=== PATIENT | male | born 1985 | race Caucasian/White ===

== ENCOUNTER 2021-02-18 14:57 | Emergency (ER) | payer MEDICAID ==
[~2021-02-18] VITALS: Ht 177.8 cm; Wt 97.5 kg
--- NOTE | 2021-02-18 15:05 | NUR ---
Dr Baldwin at bedside for MSE in Room 5.
[2021-02-18] MEDS ORDERED: LOSA50TA39 PO (15:09)
--- NOTE | 2021-02-18 15:24 | NUR ---
industrial technician at bedside for Xrays.
[2021-02-18] MEDS ORDERED: HYDR-4209 PO (15:59)
[2021-02-18] MEDS ORDERED: NAPR-1164 PO (15:59)
--- NOTE | 2021-02-18 16:13 | NUR ---
Crutches dispensed. Pt instructed on proper use of crutches. Patient able to demonstrate correct use of crutches.
[2021-02-18 16:14] VITALS: BP 148/79
--- NOTE | 2021-02-18 16:14 | NUR ---
Patient discharged to home in stable condition. Written and verbal after care instructions given. Patient verbalizes understanding of instructions. Stressed follow up or return to ER for worsening s/s.
== END 2021-02-18 16:15 | disposition home or self-care (01) ==
LOC: ER 14:57
DX: S82.51XA Displaced fracture of medial malleolus of right tibia, initial encounter for closed fracture (principal); V29.88XA Motorcycle rider (driver) (passenger) injured in other specified transport accidents, initial encounter; Y93.89 Activity, other specified; Y92.89 Other specified places as the place of occurrence of the external cause; M25.471 Effusion, right ankle
CPT/HCPCS: 73610; A4663